=== PATIENT | male | born 1955 | race African-American/Black ===

== ENCOUNTER 2020-06-27 07:00 | Emergency (ER) | payer MEDICAID ==
[~2020-06-27] VITALS: Ht 175.3 cm; Wt 68.0 kg
[2020-06-27 07:48] VITALS: BP 147/92
[2020-06-27 08:01] LABS: CHLORIDE 117 mEq/L (98-107)
[2020-06-27 08:03] LABS: BASOPHILS % 0.9 % (0.0-2.0); EOSINOPHILS % 0.4 % (0.0-5.0); HEMATOCRIT. 37.4 % (42.0-52.0); HEMOGLOBIN. 12.3 g/dL (14.0-18.0); LYMPHOCYTES % 8.8 % (20.0-50.0); MEAN CORPUSCULAR HEMOGLOBIN 32.9 pg (28.0-32.0); MEAN CORPUSCULAR VOLUME 99.9 fL (80.0-94.0); MONOCYTES % 8.2 % (2.0-8.0); NEUTROPHILS % 81.7 % (40.0-76.0); PLATELET 317 x1000/uL (130-400); RED BLOOD CELL COUNT 3.75 mill/uL (4.7-6.1); RED CELL DISTRIBUTION WIDTH 13.5 % (11.6-14.6)
[2020-06-27 08:05] LABS: ETHANOL BLOOD < 10 mg/dL
== END 2020-06-27 09:50 | disposition home or self-care (01) ==
LOC: ER 07:00
DX: R45.851 Suicidal ideations (principal); D64.9 Anemia, unspecified; I10 Essential (primary) hypertension; Z59.0 Homelessness; F12.90 Cannabis use, unspecified, uncomplicated
CPT/HCPCS: 36415; 80053; 80320; 85025; 93005; 99284; Z7610; G0480

== ENCOUNTER 2021-05-03 07:44 | Emergency (ER) | payer OTHER, MEDICAID ==
[~2021-05-03] VITALS: Ht 165.1 cm; Wt 75.0 kg
[2021-05-03] MEDS ORDERED: QUET400T MT (08:09)
[2021-05-03] MEDS ORDERED: LISI20TA31 MT (08:09)
[2021-05-03 08:20] VITALS: BP 135/85
== END 2021-05-03 08:52 ==
LOC: ER 07:44
DX: Z02.89 Encounter for other administrative examinations (principal); I10 Essential (primary) hypertension; F16.90 Hallucinogen use, unspecified, uncomplicated
CPT/HCPCS: 99283